=== PATIENT | male | born 1970 | race Two or more races ===

== ENCOUNTER 2016-06-13 09:39 | Emergency (ER) | payer SELFPAY ==
[2016-06-13] MEDS ORDERED: IOPAMIDOL 370 (76%) 100 ML VIAL IV ONE (09:40)
[2016-06-13 10:32] LABS: URINE BILIRUBIN NEGATIVE (NEGATIVE); URINE BLOOD 3+ (NEGATIVE); URINE GLUCOSE (UA) NEGATIVE (NEGATIVE); URINE LEUKOCYTE ESTERASE 2+ (NEGATIVE); URINE NITRITE POSITIVE (NEGATIVE); URINE PROTEIN 1+ (NEGATIVE); URINE UROBILINOGEN NORMAL (0-1 mg/dl)
[2016-06-13 10:33] LABS: URINE APPEARANCE HAZY; URINE COLOR AMBER
[2016-06-13 10:40] LABS: URINE BACTERIA 3+; URINE MUCUS 3+; URINE RBC 40-50 /hpf; URINE WBC 40-50 /hpf
[2016-06-13 10:56] LABS: ABSOLUTE NEUTROPHIL COUNT 11.4 K/mm3 (1.8-7.7); BASO # 0.1 K/mm3 (0.0-0.2); BASO % 0.5 % (0.2-1.0); EOS % 0.1 % (0.9-2.9); HEMATOCRIT 46.9 % (32.0-52.0); HEMOGLOBIN 15.8 gm/l (14.0-18.0); IMM NEUT # 0.1 K/mm3 (0-0.2); IMM NEUT% 0.3 % (0-1); LYMPH # 2.3 (1.0-4.8); LYMPH % 15.6 % (15-45); MEAN CELL VOLUME 82.6 fl (80.0-94.0); MEAN CORPUSCULAR HEMOGLOBIN 27.8 pg (27.0-31.0); MEAN CORPUSCULAR HGB CONC 33.7 g/dl (33.0-37.0); MEAN PLATELET VOLUME 10.2 fl (7.4-10.4); MONO # 1.1 (0.0-0.8); MONO % 7.4 % (4-12); NEUT % 76.1 % (43-75); PLATELET COUNT 233 K/mm3 (130-400); RED CELL DISTRIBUTION WIDTH 12.6 % (11.5-14.5)
[2016-06-13 11:08] LABS: ALB/GLOB RATIO 1.2 (>1.0); ALBUMIN 4.1 gm/dL (3.5-5.7); CALCIUM 9.2 mg/dL (8.6-10.3)
--- NOTE | 2016-06-13 11:29 | CT ---
EXAMINATION: Contrast enhanced CT scan of the abdomen and pelvis. CLINICAL INDICATION: Fever and lower abdominal pain. COMPARISON: None TECHNIQUE: Oral contrast: None Following uneventful administration of 100 mL of Isovue 300, intravenously axial images were acquired from just above the domes of the diaphragm to the iliac crest. A CT scan of the pelvis was also obtained from the iliac crest to the initial tuberosities. Stacked axial, sagittal, and coronal images were reviewed. Findings: Abdomen CT: (Contrast-enhanced): There is mild bibasilar atelectasis. No effusion or consolidation is identified in the visualized segments. Liver exhibits no worrisome lesion. There are small low-attenuation foci currently most compatible with cysts. The largest approximates 7 mm and is in the medial segment left lobe. The gallbladder is within normal limits. There is no evidence of biliary obstruction. The spleen size and attenuation are within normal limits. The pancreas is normal in size and contours. No inflammatory stranding is identified. The pancreatic duct is unremarkable. The adrenals are unremarkable. The kidneys are without mass or hydronephrosis. No nephrolithiasis is identified. Minimal atherosclerotic plaquing of the abdominal aorta is noted. There is no aneurysmal dilatation. The stomach is unremarkable. The visualized segments of small and large bowel are within normal limits. The osseous structures exhibit no displaced fracture. No lytic or blastic lesions are identified. Pelvic CT: (Contrast -enhanced): The distal ureters are unremarkable. There is mild bladder wall thickening. This may reflect postobstructive change however cystitis cannot be excluded. The prostate is generous in size. There is no pelvic lymphadenopathy. No free fluid is identified. The distal abdominal aorta and iliac vessels are within normal limits. There is diverticulosis of the colon without evidence of acute diverticulitis. The small bowel is unremarkable. The appendix is unremarkable. No displaced fractures are identified. There are no gross osteolytic or blastic lesions. The overlying soft tissues are unremarkable. IMPRESSION: 1. Mild urinary bladder wall thickening. Although this may reflect postobstructive changes due to an enlarged prostate, cystitis may give a similar appearance. 2. Otherwise no evidence of acute inflammatory or obstructive process of the abdomen and pelvis. 3. Mild bibasilar atelectasis. 4. Hepatic cysts. 5. Atherosclerosis. 6. Diverticulosis without evidence of acute diverticulitis. 7. Minor spondylosis changes of the lumbar spine. The findings were uploaded to the electronic medical record for review at approximately 11:30 AM 06/13/2016
[2016-06-13] MEDS ORDERED: CEFTRIAXONE 1 GRAM DUPLEX 50 ML IV ONE (11:30)
== END 2016-06-13 12:19 | disposition home or self-care (01) ==
LOC: ED 09:39
DX: N12 Tubulo-interstitial nephritis, not specified as acute or chronic (principal); E66.9 Obesity, unspecified